=== PATIENT | female | born 1935 | race Caucasian/White ===

== ENCOUNTER 2017-08-15 20:47 | Emergency (ER) | payer OTHER ==
[~2017-08-15] VITALS: Ht 157.5 cm; Wt 51.5 kg
[~2017-08-15 20:47] MED LIST: ATIVAN0.5 MG PO; CARISOPRODOL350 MG PO; Cozaar PO; ECOTRIN325 MG PO; HYDRALAZINE HCL10 MG PO; HYDROCODON-ACE1 EAC7 PO; LABETALOL HCL100 MG PO; LANOXIN,DIGIT0.25 MG PO; LASIX40 MG PO; LEXAPRO20 MG PO; LIBRAX CAPSULE1 EACH PO; LUNESTA2 MG PO; LUNESTA3 MG PO; Lunesta PO; NEURONTIN800 MG PO; NORVASC10 M1 PO; PERCOCET 5/31 TABLET PO; PRAVACHOL40 M1 PO; PROTONIX20 MG PO; TRICOR145 MG PO
[2017-08-15 21:37] LABS: HEMATOCRIT 33.2 % (36.0-46.0); HEMOGLOBIN 10.6 G/DL (11.9-15.5); MCH 28.3 PG (29.0-34.0); MCHC 31.9 G/DL (30.0-36.0); MCV 88.8 FL (83-99); PLATELET COUNT 220 K/uL (156-360); RBC DIS.WIDTH-CV 14.3 % (11.8-14.6); RBC DIS.WIDTH-SD 46.5 % (39-53); RED BLOOD COUNT 3.74 M/uL (3.80-5.20); WHITE BLOOD COUNT 7.4 K/uL (4.1-10.2)
[2017-08-15 21:40] LABS: INTER. NORMALIZED RATIO 1.1
[2017-08-15 21:43] LABS: PTT 27.1 SEC (25-37)
[2017-08-15 21:50] LABS: ALBUMIN 2.1 g/dL (3.2-4.8); CHLORIDE 107 mEq/L (99-109); POTASSIUM 3.5 mEq/L (3.7-5.4); SODIUM 137 mEq/L (136-147)
[2017-08-15 21:52] LABS: GLUCOSE 101 mg/dL (70-99)
[2017-08-15 21:53] LABS: TOTAL PROTEIN 4.8 g/dL (6.4-8.3)
[2017-08-15 21:54] LABS: TOTAL BILIRUBIN 0.3 mg/dL (0.0-1.0)
[2017-08-15 21:56] LABS: ALKALINE PHOSPHATASE 67 IU/L (3-129); CREATININE 2.3 mg/dL (0.6-1.3); GFR ESTIMATE (CALCULATED) 22 mL/min/
[2017-08-15 21:57] LABS: TROP-I INTERPRETATION NEGATIVE; TROPONIN-I 0.09 ng/mL (0.0-0.30); UREA NITROGEN (BUN) 27 mg/dL (9-23)
[2017-08-15 21:58] LABS: AST (GOT) 13 IU/L (2-34)
[2017-08-15 21:59] LABS: ALT (GPT) 11 IU/L (3-49)
[2017-08-16 00:01] VITALS: BP 162/72
[2017-08-17] MEDS ORDERED: DIGOXIN125 MCG PO (22:32)
[2017-08-17] MEDS ORDERED: KLOR-CON M2020 MEQ PO (22:32)
[2017-08-17] MEDS ORDERED: FOSAMAX70 MG PO (22:32)
[2017-08-17] MEDS ORDERED: LUNESTA2 MG PO (22:34)
[2017-08-17] MEDS ORDERED: ASPIRIN81 M2 PO (22:34)
== END 2017-08-16 00:02 | disposition home or self-care (01) ==
LOC: EME 20:47
PROVIDERS: Emergency Medicine
DX: I11.0 Hypertensive heart disease with heart failure (principal); I50.9 Heart failure, unspecified; M79.89 Other specified soft tissue disorders; F41.9 Anxiety disorder, unspecified; F32.9 Major depressive disorder, single episode, unspecified; K21.9 Gastro-esophageal reflux disease without esophagitis; F17.200 Nicotine dependence, unspecified, uncomplicated; I25.2 Old myocardial infarction; Z95.810 Presence of automatic (implantable) cardiac defibrillator; Z90.49 Acquired absence of other specified parts of digestive tract; Z88.5 Allergy status to narcotic agent; Z88.8 Allergy status to other drugs, medicaments and biological substances
CPT/HCPCS: 71020; 80053; 83880; 84484; 85027; 85610; 85730; 93005; 99281; 99284

== ENCOUNTER 2017-08-17 18:19 | Inpatient (IN) | payer OTHER ==
[~2017-08-17] VITALS: Ht 157.5 cm; Wt 12.0 kg
[2017-08-17 19:36] LABS: BASOPHIL (%) 0.2 % (0-1); EOSINOPHIL (%) 0.1 % (0-5); HEMATOCRIT 36.5 % (36.0-46.0); HEMOGLOBIN 11.6 G/DL (11.9-15.5); IMMATURE GRANULOCYTE (%) 0.8 % (0.0-0.7); LYMPHOCYTE COUNT 1.1 K/uL (1.0-2.8); MCH 28.4 PG (29.0-34.0); MCHC 31.8 G/DL (30.0-36.0); MCV 89.2 FL (83-99); MONOCYTE (%) 4.4 % (3-12); MONOCYTE COUNT 0.5 K/uL (0-0.8); NEUTROPHIL (%) 83.5 % (45-76); NEUTROPHIL COUNT 8.6 K/uL (1.8-6.4); PLATELET COUNT 203 K/uL (156-360); RBC DIS.WIDTH-CV 14.4 % (11.8-14.6); RBC DIS.WIDTH-SD 46.8 % (39-53); RED BLOOD COUNT 4.09 M/uL (3.80-5.20); WHITE BLOOD COUNT 10.3 K/uL (4.1-10.2)
[2017-08-17 19:45] LABS: ALBUMIN 2.2 g/dL (3.2-4.8); CHLORIDE 111 mEq/L (99-109); POTASSIUM 3.7 mEq/L (3.7-5.4); SODIUM 140 mEq/L (136-147)
[2017-08-17 19:47] LABS: GLUCOSE 95 mg/dL (70-99); TOTAL PROTEIN 5.1 g/dL (6.4-8.3)
[2017-08-17 19:50] LABS: TOTAL BILIRUBIN 0.4 mg/dL (0.0-1.0)
[2017-08-17 19:51] LABS: ALKALINE PHOSPHATASE 73 IU/L (3-129); CREATININE 2.5 mg/dL (0.6-1.3); GFR ESTIMATE (CALCULATED) 20 mL/min/
[2017-08-17 19:52] LABS: AST (GOT) 16 IU/L (2-34); UREA NITROGEN (BUN) 37 mg/dL (9-23)
[2017-08-17 19:54] LABS: ALT (GPT) 12 IU/L (3-49); CREATINE KINASE 142 IU/L (1-294)
[2017-08-17 19:56] LABS: TROP-I INTERPRETATION INDETERMINATE; TROPONIN-I 0.35 ng/mL (0.0-0.30)
[2017-08-17 21:01] LABS: BILIRUBIN NEGATIVE; BLOOD LARGE; GLUCOSE (STRIP) NEGATIVE; KETONES NEGATIVE; LEUKOCYTES LARGE; NITRITE NEGATIVE; PROTEIN (STRIP) >=500; SPECIFIC GRAVITY 1.011 (1.000-1.030); UROBILINOGEN 0.2 MG/DL (0.2-1.0)
[2017-08-17 21:02] LABS: APPEARANCE TURBID ((CLEAR)); COLOR YELLOW ((YELLOW))
[2017-08-17 21:14] LABS: DIGOXIN < 0.3 ng/mL (0.8-2.0)
[2017-08-17 21:45] LABS: BACTERIA 4+ /HPF; EPITHELIAL CELLS RARE /HPF; MUCUS NONE SEEN /LPF; RED BLOOD CELLS 0-5 /HPF (0-5); UCUL ADDED? YES; WHITE BLOOD CELLS 30-40 /HPF (0-5)
[2017-08-17] MEDS ORDERED: KLOR-CON M2020 MEQ PO (22:32)
[2017-08-17] MEDS ORDERED: FOSAMAX70 MG PO (22:32)
[2017-08-17] MEDS ORDERED: DIGOXIN125 MCG PO (22:32)
[2017-08-17] MEDS ORDERED: ASPIRIN81 M2 PO (22:34)
[2017-08-17] MEDS ORDERED: LUNESTA2 MG PO (22:34)
[2017-08-17 23:45] VITALS: BP 143/64
[2017-08-18 02:27] LABS: TROP-I INTERPRETATION INDETERMINATE; TROPONIN-I 0.38 ng/mL (0.0-0.30)
[2017-08-18 03:30] VITALS: BP 141/63
[2017-08-18 07:48] LABS: TROP-I INTERPRETATION INDETERMINATE; TROPONIN-I 0.41 ng/mL (0.0-0.30)
[2017-08-18 09:00] VITALS: BP 175/72
[2017-08-18 13:00] VITALS: BP 165/73
[2017-08-18 14:50] LABS: CHLORIDE 108 MEQ/L (99-109); CREATININE 2.8 MG/DL (0.6-1.3); GFR ESTIMATE (CALCULATED) 17 mL/min/; MAGNESIUM 1.5 mg/dl (1.3-2.7); POTASSIUM 3.5 MEQ/L (3.7-5.4); SODIUM 138 MEQ/L (136-147); UREA NITROGEN (BUN) 42 mg/dL (9-23)
[2017-08-18 14:54] LABS: GLUCOSE 196 mg/dL (70-99)
[2017-08-18] MEDS ORDERED: APRESOLINE10 MG PO (15:04)
[2017-08-18] MEDS ORDERED: TRENTAL400 MG PO (15:04)
[2017-08-18] MEDS ORDERED: COREG12.5 M1 PO (15:05)
[2017-08-18] MEDS ORDERED: NORVASC10 MG PO (15:05)
[2017-08-18] MEDS ORDERED: PRAVACHOL80 MG PO (15:06)
[2017-08-18 15:22] LABS: THYROTROPIN (TSH) 2.6 MIU/L (0.4-5.5)
[2017-08-18 16:09] VITALS: BP 150/65
[2017-08-18 19:00] VITALS: BP 135/61
[2017-08-18 23:00] VITALS: BP 166/72
[2017-08-19 03:00] VITALS: BP 113/55
[2017-08-19 05:29] LABS: BASOPHIL (%) 0.1 % (0-1); EOSINOPHIL (%) 0.4 % (0-5); HEMATOCRIT 27.8 % (36.0-46.0); HEMOGLOBIN 8.7 G/DL (11.9-15.5); IMMATURE GRANULOCYTE (%) 0.6 % (0.0-0.7); LYMPHOCYTE (%) 23.6 % (15-42); LYMPHOCYTE COUNT 1.7 K/uL (1.0-2.8); MCH 28.5 PG (29.0-34.0); MCHC 31.3 G/DL (30.0-36.0); MCV 91.1 FL (83-99); MONOCYTE COUNT 0.6 K/uL (0-0.8); NEUTROPHIL (%) 67.3 % (45-76); NEUTROPHIL COUNT 4.7 K/uL (1.8-6.4); PLATELET COUNT 168 K/uL (156-360); RBC DIS.WIDTH-CV 14.9 % (11.8-14.6); RBC DIS.WIDTH-SD 49.6 % (39-53); RED BLOOD COUNT 3.05 M/uL (3.80-5.20)
[2017-08-19 05:50] LABS: ALBUMIN 1.7 G/DL (3.2-4.8); ALKALINE PHOSPHATASE 49 IU/L (3-129); ALT (GPT) 8 IU/L (3-49); AST (GOT) 11 IU/L (2-34); CHLORIDE 109 MEQ/L (99-109); CREATININE 2.9 MG/DL (0.6-1.3); GFR ESTIMATE (CALCULATED) 17 mL/min/; GLUCOSE 99 mg/dL (70-99); SODIUM 137 MEQ/L (136-147); TOTAL BILIRUBIN 0.2 MG/DL (0.0-1.0); UREA NITROGEN (BUN) 43 mg/dL (9-23)
[2017-08-19 08:42] VITALS: BP 148/65
[2017-08-19 11:10] LABS: IRON 20 MCG/DL (35-150); TRANSFERRIN (TIBC) 130.7 mg/dL (215-380); TRANSFERRIN SATUR. 15 % (20-55)
[2017-08-19 11:32] VITALS: BP 108/54
[2017-08-19 16:18] VITALS: BP 108/53
[2017-08-19 20:38] VITALS: BP 152/65
[2017-08-20 00:02] VITALS: BP 128/58
[2017-08-20 04:00] VITALS: BP 119/55
[2017-08-20 07:00] LABS: HEMATOCRIT 29.7 % (36.0-46.0); HEMOGLOBIN 9.1 G/DL (11.9-15.5); MCHC 30.6 G/DL (30.0-36.0); MCV 91.4 FL (83-99); PLATELET COUNT 196 K/uL (156-360); RBC DIS.WIDTH-CV 14.7 % (11.8-14.6); RBC DIS.WIDTH-SD 49.3 % (39-53); RED BLOOD COUNT 3.25 M/uL (3.80-5.20)
[2017-08-20 07:10] LABS: CHLORIDE 108 MEQ/L (99-109); GFR ESTIMATE (CALCULATED) 16 mL/min/; GLUCOSE 86 mg/dL (70-99); SODIUM 138 MEQ/L (136-147); UREA NITROGEN (BUN) 49 mg/dL (9-23)
[2017-08-20 07:11] LABS: ALBUMIN 1.9 G/DL (3.2-4.8)
[2017-08-20 07:14] LABS: MAGNESIUM 1.8 mg/dl (1.3-2.7)
[2017-08-20 07:53] VITALS: BP 142/63
[2017-08-20 09:16] LABS: FOLIC ACID (FOLATE) 9.2 NG/ML (5.0-22.0)
[2017-08-20 16:23] VITALS: BP 126/58
[2017-08-20 19:42] VITALS: BP 120/58
[2017-08-20 23:38] VITALS: BP 114/58
[2017-08-21 04:00] VITALS: BP 159/72
[2017-08-21 06:16] LABS: BASOPHIL (%) 0.2 % (0-1); EOSINOPHIL (%) 0.5 % (0-5); HEMATOCRIT 28.7 % (36.0-46.0); HEMOGLOBIN 8.7 G/DL (11.9-15.5); IMMATURE GRANULOCYTE (%) 0.4 % (0.0-0.7); LYMPHOCYTE COUNT 1.1 K/uL (1.0-2.8); MCH 27.9 PG (29.0-34.0); MCHC 30.3 G/DL (30.0-36.0); MONOCYTE COUNT 0.6 K/uL (0-0.8); NEUTROPHIL (%) 78.9 % (45-76); NEUTROPHIL COUNT 6.6 K/uL (1.8-6.4); PLATELET COUNT 192 K/uL (156-360); RBC DIS.WIDTH-CV 14.7 % (11.8-14.6); RBC DIS.WIDTH-SD 49.9 % (39-53); RED BLOOD COUNT 3.12 M/uL (3.80-5.20); WHITE BLOOD COUNT 8.3 K/uL (4.1-10.2)
[2017-08-21 07:01] LABS: A/G RATIO 0.8 (1.1-1.8); ALBUMIN 1.9 G/DL (3.4-5.0); CHLORIDE 109 MEQ/L (99-109); CREATININE 2.9 MG/DL (0.6-1.3); GFR ESTIMATE (CALCULATED) 17 mL/min/; GLOBULINS 2.4 G/DL (2.3-3.5); GLUCOSE 63 mg/dL (70-99); POTASSIUM 4.4 MEQ/L (3.7-5.4); SODIUM 139 MEQ/L (136-147); TOTAL PROTEIN 4.3 G/DL (6.4-8.2); UREA NITROGEN (BUN) 52 mg/dL (9-23)
[2017-08-21 07:11] VITALS: BP 147/60
[2017-08-21 11:08] VITALS: BP 123/58
[2017-08-21 15:25] VITALS: BP 140/65
[2017-08-22 06:12] LABS: BASOPHIL (%) 0.2 % (0-1); EOSINOPHIL (%) 0.5 % (0-5); HEMOGLOBIN 9.1 G/DL (11.9-15.5); IMMATURE GRANULOCYTE (%) 0.5 % (0.0-0.7); LYMPHOCYTE (%) 14.8 % (15-42); LYMPHOCYTE COUNT 1.3 K/uL (1.0-2.8); MCH 28.3 PG (29.0-34.0); MCHC 30.3 G/DL (30.0-36.0); MCV 93.5 FL (83-99); MONOCYTE (%) 8.7 % (3-12); MONOCYTE COUNT 0.8 K/uL (0-0.8); NEUTROPHIL (%) 75.3 % (45-76); NEUTROPHIL COUNT 6.7 K/uL (1.8-6.4); PLATELET COUNT 207 K/uL (156-360); RBC DIS.WIDTH-CV 14.6 % (11.8-14.6); RBC DIS.WIDTH-SD 50.1 % (39-53); RED BLOOD COUNT 3.21 M/uL (3.80-5.20); WHITE BLOOD COUNT 8.9 K/uL (4.1-10.2)
[2017-08-22 06:39] LABS: CHLORIDE 111 MEQ/L (99-109); GFR ESTIMATE (CALCULATED) 16 mL/min/; GLUCOSE 79 mg/dL (70-99); POTASSIUM 4.3 MEQ/L (3.7-5.4); SODIUM 140 MEQ/L (136-147); UREA NITROGEN (BUN) 56 mg/dL (9-23)
[2017-08-22 07:48] VITALS: BP 178/90
[2017-08-22 12:21] VITALS: BP 139/81
[2017-08-22 16:58] VITALS: BP 160/81
[2017-08-23 06:40] LABS: CHLORIDE 110 MEQ/L (99-109); CREATININE 2.7 MG/DL (0.6-1.3); GFR ESTIMATE (CALCULATED) 18 mL/min/; POTASSIUM 4.2 MEQ/L (3.7-5.4); SODIUM 142 MEQ/L (136-147); UREA NITROGEN (BUN) 61 mg/dL (9-23)
[2017-08-23 06:41] LABS: GLUCOSE 117 mg/dL (70-99)
[2017-08-23 07:08] LABS: BASOPHIL (%) 0.1 % (0-1); EOSINOPHIL (%) 0.4 % (0-5); HEMATOCRIT 27.8 % (36.0-46.0); HEMOGLOBIN 8.8 G/DL (11.9-15.5); IMMATURE GRANULOCYTE (%) 0.7 % (0.0-0.7); LYMPHOCYTE (%) 17.2 % (15-42); LYMPHOCYTE COUNT 1.2 K/uL (1.0-2.8); MCH 28.9 PG (29.0-34.0); MCHC 31.7 G/DL (30.0-36.0); MCV 91.4 FL (83-99); MONOCYTE (%) 7.1 % (3-12); MONOCYTE COUNT 0.5 K/uL (0-0.8); NEUTROPHIL (%) 74.5 % (45-76); NEUTROPHIL COUNT 5.1 K/uL (1.8-6.4); PLATELET COUNT 207 K/uL (156-360); RBC DIS.WIDTH-CV 14.6 % (11.8-14.6); RBC DIS.WIDTH-SD 48.9 % (39-53); RED BLOOD COUNT 3.04 M/uL (3.80-5.20); WHITE BLOOD COUNT 6.9 K/uL (4.1-10.2)
[2017-08-23 08:51] VITALS: BP 177/80
[2017-08-23 16:01] VITALS: BP 178/79
[2017-08-23 22:07] VITALS: BP 158/80
[2017-08-23 23:47] VITALS: BP 190/84
[2017-08-24 04:00] VITALS: BP 180/60
[2017-08-24 06:31] LABS: CHLORIDE 112 MEQ/L (99-109); CREATININE 2.3 MG/DL (0.6-1.3); GFR ESTIMATE (CALCULATED) 22 mL/min/; GLUCOSE 112 mg/dL (70-99); POTASSIUM 4.2 MEQ/L (3.7-5.4); SODIUM 142 MEQ/L (136-147); UREA NITROGEN (BUN) 61 mg/dL (9-23)
[2017-08-24 08:42] VITALS: BP 174/70
[2017-08-24 11:30] VITALS: BP 142/60
[2017-08-24 22:16] VITALS: BP 160/70
[2017-08-24 23:11] VITALS: BP 168/90
[2017-08-25 06:47] LABS: BASOPHIL (%) 0.2 % (0-1); EOSINOPHIL (%) 0.9 % (0-5); EOSINOPHIL COUNT 0.1 K/uL (0-0.3); HEMATOCRIT 28.3 % (36.0-46.0); HEMOGLOBIN 8.7 G/DL (11.9-15.5); IMMATURE GRANULOCYTE (%) 0.6 % (0.0-0.7); LYMPHOCYTE (%) 20.4 % (15-42); LYMPHOCYTE COUNT 1.4 K/uL (1.0-2.8); MCH 28.2 PG (29.0-34.0); MCHC 30.7 G/DL (30.0-36.0); MCV 91.6 FL (83-99); MONOCYTE (%) 6.9 % (3-12); MONOCYTE COUNT 0.5 K/uL (0-0.8); NEUTROPHIL COUNT 4.7 K/uL (1.8-6.4); PLATELET COUNT 230 K/uL (156-360); RBC DIS.WIDTH-SD 49.2 % (39-53); RED BLOOD COUNT 3.09 M/uL (3.80-5.20); WHITE BLOOD COUNT 6.6 K/uL (4.1-10.2)
[2017-08-25 06:50] LABS: CHLORIDE 109 MEQ/L (99-109); CREATININE 2.4 MG/DL (0.6-1.3); GFR ESTIMATE (CALCULATED) 21 mL/min/; GLUCOSE 98 mg/dL (70-99); POTASSIUM 3.9 MEQ/L (3.7-5.4); SODIUM 142 MEQ/L (136-147); UREA NITROGEN (BUN) 62 mg/dL (9-23)
[2017-08-25 08:21] VITALS: BP 140/63
[2017-08-25 08:47] LABS: ALBUMIN 1.89 G/DL (3.6-4.9); ALPHA-1 GLOBULIN 0.43 G/DL (0.15-0.40); ALPHA-2 GLOBULIN 0.63 G/DL (0.45-0.85); BETA-GLOBULIN 0.51 G/DL (0.65-1.15); GAMMA-GLOBULIN 0.84 G/DL (0.60-1.35)
[2017-08-25 13:17] VITALS: BP 179/74
[2017-08-25 15:47] VITALS: BP 136/65
[2017-08-25 17:11] VITALS: BP 159/69
[2017-08-25 23:19] VITALS: BP 165/71
[2017-08-26 06:05] VITALS: BP 130/60
[2017-08-26 06:55] LABS: BASOPHIL (%) 0.1 % (0-1); EOSINOPHIL (%) 0.8 % (0-5); EOSINOPHIL COUNT 0.1 K/uL (0-0.3); HEMATOCRIT 27.1 % (36.0-46.0); HEMOGLOBIN 8.2 G/DL (11.9-15.5); IMMATURE GRANULOCYTE (%) 0.5 % (0.0-0.7); LYMPHOCYTE (%) 21.5 % (15-42); LYMPHOCYTE COUNT 1.6 K/uL (1.0-2.8); MCH 28.2 PG (29.0-34.0); MCHC 30.3 G/DL (30.0-36.0); MCV 93.1 FL (83-99); MONOCYTE (%) 5.5 % (3-12); MONOCYTE COUNT 0.4 K/uL (0-0.8); NEUTROPHIL (%) 71.6 % (45-76); NEUTROPHIL COUNT 5.2 K/uL (1.8-6.4); PLATELET COUNT 228 K/uL (156-360); RBC DIS.WIDTH-CV 15.2 % (11.8-14.6); RBC DIS.WIDTH-SD 51.1 % (39-53); RED BLOOD COUNT 2.91 M/uL (3.80-5.20); WHITE BLOOD COUNT 7.3 K/uL (4.1-10.2)
[2017-08-26 07:18] LABS: CHLORIDE 108 MEQ/L (99-109); CREATININE 2.3 MG/DL (0.6-1.3); GFR ESTIMATE (CALCULATED) 22 mL/min/; GLUCOSE 83 mg/dL (70-99); POTASSIUM 3.8 MEQ/L (3.7-5.4); SODIUM 141 MEQ/L (136-147); UREA NITROGEN (BUN) 63 mg/dL (9-23)
[2017-08-26 08:57] VITALS: BP 134/63
[2017-08-26 16:31] VITALS: BP 128/60
[2017-08-26 16:32] VITALS: BP 129/57
[2017-08-26 21:37] VITALS: BP 139/62
[2017-08-26 23:15] VITALS: BP 148/68
[2017-08-27 07:09] LABS: BASOPHIL (%) 0.1 % (0-1); EOSINOPHIL (%) 0.8 % (0-5); EOSINOPHIL COUNT 0.1 K/uL (0-0.3); HEMATOCRIT 28.9 % (36.0-46.0); HEMOGLOBIN 8.6 G/DL (11.9-15.5); IMMATURE GRANULOCYTE (%) 0.6 % (0.0-0.7); LYMPHOCYTE (%) 18.6 % (15-42); LYMPHOCYTE COUNT 1.6 K/uL (1.0-2.8); MCH 27.9 PG (29.0-34.0); MCHC 29.8 G/DL (30.0-36.0); MCV 93.8 FL (83-99); MONOCYTE (%) 5.7 % (3-12); MONOCYTE COUNT 0.5 K/uL (0-0.8); NEUTROPHIL (%) 74.2 % (45-76); NEUTROPHIL COUNT 6.3 K/uL (1.8-6.4); PLATELET COUNT 223 K/uL (156-360); RBC DIS.WIDTH-SD 51.4 % (39-53); RED BLOOD COUNT 3.08 M/uL (3.80-5.20); WHITE BLOOD COUNT 8.5 K/uL (4.1-10.2)
[2017-08-27 07:25] VITALS: BP 148/66
[2017-08-27 07:46] LABS: CHLORIDE 107 MEQ/L (99-109); CREATININE 2.3 MG/DL (0.6-1.3); GFR ESTIMATE (CALCULATED) 22 mL/min/; GLUCOSE 85 mg/dL (70-99); POTASSIUM 4.2 MEQ/L (3.7-5.4); SODIUM 140 MEQ/L (136-147); UREA NITROGEN (BUN) 63 mg/dL (9-23)
[2017-08-27 16:34] VITALS: BP 128/62
[2017-08-27 23:11] VITALS: BP 136/72
[2017-08-28 06:11] VITALS: BP 138/63
[2017-08-28 06:57] LABS: CHLORIDE 107 MEQ/L (99-109); CREATININE 2.4 MG/DL (0.6-1.3); GFR ESTIMATE (CALCULATED) 21 mL/min/; GLUCOSE 92 mg/dL (70-99); POTASSIUM 4.2 MEQ/L (3.7-5.4); SODIUM 140 MEQ/L (136-147); UREA NITROGEN (BUN) 66 mg/dL (9-23)
[2017-08-28 07:35] VITALS: BP 143/63
[2017-08-28] MEDS ORDERED: DUONEB 2.5-0.5 M3 ML AEROSOL (12:20)
[2017-08-28] MEDS ORDERED: HEPARIN SO5000 UNIT4 SC (12:20)
[2017-08-28] MEDS ORDERED: APRESOLINE50 MG PO (12:21)
[2017-08-28] MEDS ORDERED: AMLODIPINE BESYL5 MG PO (12:21)
[2017-08-28] MEDS ORDERED: OLANZAPINE2.5 MG PO (12:22)
[2017-08-28] MEDS ORDERED: QUETIAPINE FUMA25 MG PO (12:22)
[2017-08-28] MEDS ORDERED: ERGOCALCIF50000 UNIT PO (12:22)
[2017-08-28] MEDS ORDERED: BUMETANIDE0.5 MG PO (12:22)
[2017-08-28] MEDS ORDERED: BUMETANIDE1 MG PO (12:22)
[2017-08-28] MEDS ORDERED: COREG25 M1 PO (12:24)
[2017-08-28] MEDS ORDERED: OXYCODONE HCL5 MG PO (12:25)
[2017-08-28] MEDS ORDERED: PRAVASTATIN SOD80 MG PO (15:32)
[2017-08-28] MEDS ORDERED: ESCITALOPRAM OX20 MG PO (15:33)
[2017-08-28] MEDS ORDERED: GABAPENTIN300 MG PO (15:33)
[2017-08-28] MEDS ORDERED: ASPIR-LOW81 MG PO (15:33)
[2017-08-28] MEDS ORDERED: ONDANSETRON4 MG/2 ML IV (15:33)
[2017-08-28] MEDS ORDERED: PANTOPRAZOLE SO40 MG PO (15:34)
[2017-08-28] MEDS ORDERED: PRAVACHOL80 MG PO (15:35)
[2017-08-28] MEDS ORDERED: TRENTAL400 MG PO (15:35)
[2017-08-28] MEDS ORDERED: LEXAPRO20 MG PO (15:36)
[2017-08-28] MEDS ORDERED: NEURONTIN800 MG PO (15:36)
[2017-08-28] MEDS ORDERED: COREG12.5 M1 PO (15:36)
[2017-08-28] MEDS ORDERED: NORVASC10 MG PO (15:36)
[2017-08-28] MEDS ORDERED: APRESOLINE10 MG PO (15:36)
[2017-08-28] MEDS ORDERED: ASPIRIN81 M2 PO (15:36)
[2017-08-28] MEDS ORDERED: LASIX40 MG PO (15:37)
[2017-08-28] MEDS ORDERED: LUNESTA2 MG PO (15:37)
[2017-08-28] MEDS ORDERED: PROTONIX20 MG PO (15:37)
[2017-08-30 16:49] LABS: NUMBER OF MARKERS 24; SPECIMEN TYPE BONE MARROW; SPECIMEN VIABILITY 98
== END 2017-08-28 17:10 | DRG 291 ==
LOC: EME 18:19 → 5EAST 22:10 → EDOF 22:10 → 4EAST 22:10 → ENRESERV 22:12 → 4EAST 23:32 → ENRESERV 23:38 → CANRESERV 23:38 → ENRESERV 08-19 12:13 → 5EAST 08-19 14:39 → ENPENDDIS 08-28 → 5EAST 08-28 17:10
PROVIDERS: Emergency Medicine; Family Medicine; Internal Medicine; Internal Medicine Cardiovascular Disease; Internal Medicine Gastroenterology
PROC: 07DR3ZX Extraction of Iliac Bone Marrow, Percutaneous Approach, Diagnostic (ICD-10-PCS; principal; 2017-08-27)
DX: I13.0 Hypertensive heart and chronic kidney disease with heart failure and stage 1 through stage 4 chronic kidney disease, or unspecified chronic kidney disease (principal); I50.41 Acute combined systolic (congestive) and diastolic (congestive) heart failure; N17.9 Acute kidney failure, unspecified; N18.3 Chronic kidney disease, stage 3 (moderate); I42.0 Dilated cardiomyopathy; N39.0 Urinary tract infection, site not specified; B96.1 Klebsiella pneumoniae [K. pneumoniae] as the cause of diseases classified elsewhere; B96.20 Unspecified Escherichia coli [E. coli] as the cause of diseases classified elsewhere; D47.2 Monoclonal gammopathy; E43 Unspecified severe protein-calorie malnutrition; Z68.1 Body mass index [BMI] 19.9 or less, adult; E87.4 Mixed disorder of acid-base balance; R13.10 Dysphagia, unspecified; F05 Delirium due to known physiological condition; J44.9 Chronic obstructive pulmonary disease, unspecified; E77.8 Other disorders of glycoprotein metabolism; E83.51 Hypocalcemia; E87.6 Hypokalemia; Z66 Do not resuscitate; F51.04 Psychophysiologic insomnia; D50.9 Iron deficiency anemia, unspecified; F01.50 Vascular dementia, unspecified severity, without behavioral disturbance, psychotic disturbance, mood disturbance, and anxiety; I73.9 Peripheral vascular disease, unspecified; I87.8 Other specified disorders of veins; Z86.74 Personal history of sudden cardiac arrest; G62.9 Polyneuropathy, unspecified; L97.909 Non-pressure chronic ulcer of unspecified part of unspecified lower leg with unspecified severity; R64 Cachexia; M48.56XA Collapsed vertebra, not elsewhere classified, lumbar region, initial encounter for fracture; S51.012A Laceration without foreign body of left elbow, initial encounter; S81.812A Laceration without foreign body, left lower leg, initial encounter; S81.811A Laceration without foreign body, right lower leg, initial encounter; R29.6 Repeated falls; W18.30XA Fall on same level, unspecified, initial encounter; Y92.009 Unspecified place in unspecified non-institutional (private) residence as the place of occurrence of the external cause; I48.91 Unspecified atrial fibrillation; N28.1 Cyst of kidney, acquired; E27.9 Disorder of adrenal gland, unspecified; E78.5 Hyperlipidemia, unspecified; I25.10 Atherosclerotic heart disease of native coronary artery without angina pectoris; I25.2 Old myocardial infarction; I71.4 Abdominal aortic aneurysm, without rupture; K21.9 Gastro-esophageal reflux disease without esophagitis; M47.816 Spondylosis without myelopathy or radiculopathy, lumbar region; M19.90 Unspecified osteoarthritis, unspecified site; I44.7 Left bundle-branch block, unspecified; F41.9 Anxiety disorder, unspecified; F17.210 Nicotine dependence, cigarettes, uncomplicated; Z95.810 Presence of automatic (implantable) cardiac defibrillator; Z60.2 Problems related to living alone; Z79.82 Long term (current) use of aspirin; Z86.79 Personal history of other diseases of the circulatory system; Z87.11 Personal history of peptic ulcer disease; Z98.42 Cataract extraction status, left eye; Z98.41 Cataract extraction status, right eye; Z96.1 Presence of intraocular lens; Z90.710 Acquired absence of both cervix and uterus; Z88.0 Allergy status to penicillin; Z88.5 Allergy status to narcotic agent
CPT/HCPCS: 71045; 71046; 72100; 74230; 76770; 77012; 77075; 80048; 80053; 80162; 81003; 82040; 82306; 82310; 82330; 82550; 82570; 82607; 82746; 83540; 83630; 83735; 83880; 83883 90; 84156; 84165; 84443; 84466; 84484; 84540; 85025; 85027; 85610; 85730; 86334; 86335; 87040; 87077; 87086; 87186; 87493; 87506; 89125; 92610 GN; 92611 GN; 93005; 94640; 94640 76; 94799; 97530 GO; 97530 GP; 99202; 99281; 99284; 99285; A6214; J0696; J1170; J1644; J1756; J1940; J3010; J3475; J7050

== ENCOUNTER 2017-09-02 10:17 | Inpatient (IN) | payer OTHER ==
[~2017-09-02] VITALS: Ht 157.5 cm; Wt 55.4 kg
[~2017-09-02 10:17] MED LIST changes: +AMLODIPINE BESYL5 MG PO; +APRESOLINE10 MG PO; +APRESOLINE50 MG PO; +ASPIR-LOW81 MG PO; +ASPIRIN81 M2 PO; +BUMETANIDE0.5 MG PO; +BUMETANIDE1 MG PO; +COREG12.5 M1 PO; +COREG25 M1 PO; +DIGOXIN125 MCG PO; +DUONEB 2.5-0.5 M3 ML AEROSOL; +ERGOCALCIF50000 UNIT PO; +ESCITALOPRAM OX20 MG PO; +FOSAMAX70 MG PO; +GABAPENTIN300 MG PO; +HEPARIN SO5000 UNIT4 SC; +KLOR-CON M2020 MEQ PO; +NORVASC10 MG PO; +OLANZAPINE2.5 MG PO; +ONDANSETRON4 MG/2 ML IV; +OXYCODONE HCL5 MG PO; +PANTOPRAZOLE SO40 MG PO; +PRAVACHOL80 MG PO; +PRAVASTATIN SOD80 MG PO; +QUETIAPINE FUMA25 MG PO; +TRENTAL400 MG PO
[2017-09-02 11:30] LABS: BASOPHIL (%) 0.1 % (0-1); EOSINOPHIL (%) 0.1 % (0-5); HEMATOCRIT 30.3 % (36.0-46.0); HEMOGLOBIN 9.2 G/DL (11.9-15.5); IMMATURE GRANULOCYTE (%) 0.8 % (0.0-0.7); LYMPHOCYTE (%) 6.7 % (15-42); LYMPHOCYTE COUNT 0.9 K/uL (1.0-2.8); MCH 28.9 PG (29.0-34.0); MCHC 30.4 G/DL (30.0-36.0); MCV 95.3 FL (83-99); MONOCYTE (%) 3.3 % (3-12); MONOCYTE COUNT 0.5 K/uL (0-0.8); NEUTROPHIL COUNT 12.4 K/uL (1.8-6.4); PLATELET COUNT 200 K/uL (156-360); RBC DIS.WIDTH-CV 14.8 % (11.8-14.6); RBC DIS.WIDTH-SD 52.1 % (39-53); RED BLOOD COUNT 3.18 M/uL (3.80-5.20)
[2017-09-02 11:41] LABS: BASE EXCESS 5.6 mEq/L (-3 to +3); BICARBONATE 31.5 mEq/L (22-26); CARBOXY HGB 2.1 % (0-5); METHEMOGLOBIN 0.9 % (0-1.5); PCO2 52 mm Hg (35-45); PO2 50 mm Hg (80-100); pH 7.39 (7.35-7.45)
[2017-09-02 11:42] LABS: ALBUMIN 2.1 g/dL (3.2-4.8); CHLORIDE 102 mEq/L (99-109); SODIUM 137 mEq/L (136-147)
[2017-09-02 11:42] LABS: COMMENTS - BLOOD GASES A+C+; DEVICE NC; O2 FLOW 5 L/MIN; SITE RB; TOTAL RESP RATE 20 resp/min
[2017-09-02 11:44] LABS: GLUCOSE 107 mg/dL (70-99)
[2017-09-02 11:45] LABS: TOTAL PROTEIN 4.4 g/dL (6.4-8.3)
[2017-09-02 11:46] LABS: TOTAL BILIRUBIN 0.2 mg/dL (0.0-1.0)
[2017-09-02 11:48] LABS: ALKALINE PHOSPHATASE 82 IU/L (3-129); CREATININE 2.2 mg/dL (0.6-1.3); GFR ESTIMATE (CALCULATED) 23 mL/min/
[2017-09-02 11:49] LABS: UREA NITROGEN (BUN) 63 mg/dL (9-23)
[2017-09-02 11:50] LABS: AST (GOT) 15 IU/L (2-34)
[2017-09-02 11:51] LABS: ALT (GPT) 11 IU/L (3-49)
[2017-09-02 11:51] LABS: TROP-I INTERPRETATION NEGATIVE; TROPONIN-I 0.08 ng/mL (0.0-0.30)
[2017-09-02 11:56] LABS: POTASSIUM 5.6 mEq/L (3.7-5.4)
[2017-09-02] MEDS ORDERED: NORVASC5 MG PO (16:32)
[2017-09-02] MEDS ORDERED: ASPIRIN EC325 MG PO (16:34)
[2017-09-02] MEDS ORDERED: ATORVASTATIN CA40 MG PO (16:35)
[2017-09-02] MEDS ORDERED: BUMETANIDE0.5 MG PO (16:37)
[2017-09-02] MEDS ORDERED: COREG12.5 M1 PO (16:40)
[2017-09-02] MEDS ORDERED: COREG25 M1 PO (16:42)
[2017-09-02] MEDS ORDERED: ERGOCALCIF50000 UNIT PO (16:43)
[2017-09-02] MEDS ORDERED: AUGMENTIN500 MG PO (16:47)
[2017-09-02] MEDS ORDERED: MUCINEX DM ER1 EACH PO (16:51)
[2017-09-02] MEDS ORDERED: OMEPRAZOLE20 MG PO (16:52)
[2017-09-02] MEDS ORDERED: PROBIOTIC1 EAC2 PO (16:53)
[2017-09-02] MEDS ORDERED: ROXICODONE5 MG PO (16:55)
[2017-09-02] MEDS ORDERED: DULCOLAX10 MG PR (16:57)
[2017-09-02] MEDS ORDERED: MILK OF MAGN PO (16:58)
[2017-09-02] MEDS ORDERED: FLEET ENEMA-AD118 ML PR (16:58)
[2017-09-02] MEDS ORDERED: TRAMADOL HCL50 MG PO (16:59)
[2017-09-02] MEDS ORDERED: ACETAMINOPHEN325 M1 PO (17:00)
[2017-09-02] MEDS ORDERED: DUONEB 2.5-0.5 M3 ML AEROSOL (17:08)
[2017-09-02 17:45] VITALS: BP 118/56
[2017-09-02 23:32] VITALS: BP 134/64
[2017-09-03 04:35] VITALS: BP 143/65
[2017-09-03 07:49] VITALS: BP 155/70
[2017-09-03 11:46] VITALS: BP 174/73
[2017-09-03 16:07] VITALS: BP 166/73
[2017-09-03 22:29] VITALS: BP 140/66
[2017-09-04 00:46] VITALS: BP 159/68
[2017-09-04 05:07] LABS: BASOPHIL (%) 0.1 % (0-1); EOSINOPHIL (%) 0.3 % (0-5); HEMOGLOBIN 8.8 G/DL (11.9-15.5); IMMATURE GRANULOCYTE (%) 0.6 % (0.0-0.7); LYMPHOCYTE (%) 12.9 % (15-42); LYMPHOCYTE COUNT 1.4 K/uL (1.0-2.8); MCH 28.4 PG (29.0-34.0); MCHC 30.3 G/DL (30.0-36.0); MCV 93.5 FL (83-99); MONOCYTE (%) 4.1 % (3-12); MONOCYTE COUNT 0.5 K/uL (0-0.8); NEUTROPHIL COUNT 9.1 K/uL (1.8-6.4); PLATELET COUNT 236 K/uL (156-360); RBC DIS.WIDTH-CV 14.7 % (11.8-14.6); RBC DIS.WIDTH-SD 50.9 % (39-53); WHITE BLOOD COUNT 11.1 K/uL (4.1-10.2)
[2017-09-04 05:36] LABS: CHLORIDE 102 MEQ/L (99-109); CREATININE 2.4 MG/DL (0.6-1.3); GFR ESTIMATE (CALCULATED) 21 mL/min/; GLUCOSE 90 mg/dL (70-99); SODIUM 142 MEQ/L (136-147); UREA NITROGEN (BUN) 61 mg/dL (9-23)
[2017-09-04 07:27] VITALS: BP 160/76
[2017-09-04 15:10] VITALS: BP 145/64
[2017-09-04 20:10] VITALS: BP 140/68
[2017-09-04 21:55] VITALS: BP 144/66
[2017-09-05] VITALS (7 sets, daily range): BP systolic 127–164; BP diastolic 62–74
[2017-09-06] VITALS (7 sets, daily range): BP systolic 123–193; BP diastolic 58–81
[2017-09-06 06:18] LABS: BASOPHIL (%) 0.2 % (0-1); EOSINOPHIL (%) 0.6 % (0-5); EOSINOPHIL COUNT 0.1 K/uL (0-0.3); HEMOGLOBIN 9.8 G/DL (11.9-15.5); IMMATURE GRANULOCYTE (%) 0.4 % (0.0-0.7); LYMPHOCYTE COUNT 1.4 K/uL (1.0-2.8); MCH 28.4 PG (29.0-34.0); MCHC 30.6 G/DL (30.0-36.0); MCV 92.8 FL (83-99); MONOCYTE (%) 4.7 % (3-12); MONOCYTE COUNT 0.5 K/uL (0-0.8); NEUTROPHIL (%) 80.1 % (45-76); PLATELET COUNT 266 K/uL (156-360); RBC DIS.WIDTH-CV 14.5 % (11.8-14.6); RBC DIS.WIDTH-SD 49.1 % (39-53); RED BLOOD COUNT 3.45 M/uL (3.80-5.20)
[2017-09-06 07:02] LABS: CHLORIDE 106 MEQ/L (99-109); CREATININE 2.1 MG/DL (0.6-1.3); GFR ESTIMATE (CALCULATED) 24 mL/min/; GLUCOSE 91 mg/dL (70-99); POTASSIUM 4.1 MEQ/L (3.7-5.4); SODIUM 144 MEQ/L (136-147); UREA NITROGEN (BUN) 46 mg/dL (9-23)
[2017-09-07 07:11] LABS: CHLORIDE 108 MEQ/L (99-109); CREATININE 2.1 MG/DL (0.6-1.3); GFR ESTIMATE (CALCULATED) 24 mL/min/; GLUCOSE 91 mg/dL (70-99); POTASSIUM 4.1 MEQ/L (3.7-5.4); SODIUM 145 MEQ/L (136-147); UREA NITROGEN (BUN) 43 mg/dL (9-23)
[2017-09-07 07:27] VITALS: BP 144/65
[2017-09-07 15:06] VITALS: BP 163/65
[2017-09-08 00:15] VITALS: BP 133/60
[2017-09-08 07:21] VITALS: BP 164/80
[2017-09-08 15:07] VITALS: BP 154/77
[2017-09-08 23:03] VITALS: BP 154/72
[2017-09-09 08:01] LABS: BASOPHIL (%) 0.1 % (0-1); EOSINOPHIL (%) 0.5 % (0-5); EOSINOPHIL COUNT 0.1 K/uL (0-0.3); HEMATOCRIT 31.6 % (36.0-46.0); HEMOGLOBIN 9.6 G/DL (11.9-15.5); IMMATURE GRANULOCYTE (%) 0.5 % (0.0-0.7); LYMPHOCYTE (%) 15.7 % (15-42); LYMPHOCYTE COUNT 1.5 K/uL (1.0-2.8); MCH 28.2 PG (29.0-34.0); MCHC 30.4 G/DL (30.0-36.0); MCV 92.7 FL (83-99); MONOCYTE (%) 5.3 % (3-12); MONOCYTE COUNT 0.5 K/uL (0-0.8); NEUTROPHIL (%) 77.9 % (45-76); NEUTROPHIL COUNT 7.6 K/uL (1.8-6.4); PLATELET COUNT 239 K/uL (156-360); RBC DIS.WIDTH-CV 14.5 % (11.8-14.6); RBC DIS.WIDTH-SD 49.6 % (39-53); RED BLOOD COUNT 3.41 M/uL (3.80-5.20); WHITE BLOOD COUNT 9.8 K/uL (4.1-10.2)
[2017-09-09 08:36] VITALS: BP 184/81
[2017-09-09 09:16] LABS: CHLORIDE 111 MEQ/L (99-109); CREATININE 2.1 MG/DL (0.6-1.3); GFR ESTIMATE (CALCULATED) 24 mL/min/; GLUCOSE 88 mg/dL (70-99); POTASSIUM 4.1 MEQ/L (3.7-5.4); SODIUM 146 MEQ/L (136-147); UREA NITROGEN (BUN) 42 mg/dL (9-23)
[2017-09-09 11:30] VITALS: BP 179/80
[2017-09-09 14:08] VITALS: BP 170/74
[2017-09-09 16:26] VITALS: BP 144/63
[2017-09-09 23:05] VITALS: BP 125/77
[2017-09-10 07:25] VITALS: BP 130/77
[2017-09-10] MEDS ORDERED: DUONEB 2.5-0.5 M3 ML AEROSOL (13:03)
[2017-09-10] MEDS ORDERED: AMOX TR-K CLV1 EAC3 PO (13:03)
[2017-09-10] MEDS ORDERED: LOVENOX30 MG/0.3 SC (13:04)
[2017-09-10] MEDS ORDERED: ROXICODONE5 MG PO (13:06)
[2017-09-10] MEDS ORDERED: TRAMADOL HCL50 MG PO (13:06)
[2017-09-10 16:33] VITALS: BP 122/69
== END 2017-09-10 16:55 | DRG 193 ==
LOC: EME 10:17 → 5EAST 14:30 → EDOF 14:30 → ENRESERV 14:54 → 5EAST 17:03
PROVIDERS: Emergency Medicine; Family Medicine
DX: J18.9 Pneumonia, unspecified organism (principal); J44.0 Chronic obstructive pulmonary disease with (acute) lower respiratory infection; J96.21 Acute and chronic respiratory failure with hypoxia; I50.41 Acute combined systolic (congestive) and diastolic (congestive) heart failure; E43 Unspecified severe protein-calorie malnutrition; J96.22 Acute and chronic respiratory failure with hypercapnia; T17.890A Other foreign object in other parts of respiratory tract causing asphyxiation, initial encounter; Z68.22 Body mass index [BMI] 22.0-22.9, adult; F01.50 Vascular dementia, unspecified severity, without behavioral disturbance, psychotic disturbance, mood disturbance, and anxiety; J98.11 Atelectasis; I50.9 Heart failure, unspecified; I42.0 Dilated cardiomyopathy; Z66 Do not resuscitate; D50.9 Iron deficiency anemia, unspecified; M48.50XA Collapsed vertebra, not elsewhere classified, site unspecified, initial encounter for fracture; N18.3 Chronic kidney disease, stage 3 (moderate); D47.2 Monoclonal gammopathy; I13.0 Hypertensive heart and chronic kidney disease with heart failure and stage 1 through stage 4 chronic kidney disease, or unspecified chronic kidney disease; F17.200 Nicotine dependence, unspecified, uncomplicated
CPT/HCPCS: 36600; 71045; 71046; 71250; 80048; 80053; 80202; 82803; 83605; 83880; 84484; 85025; 87040; 92610 GN; 93005; 94010; 94640; 94640 76; 94667; 94668; 94760; 94799; 99202; 99281; 99285; A6214; J1650; J1956; J2270; J2543; J3370; J7050